=== PATIENT | female | born 1965 | race Hispanic/Latino ===

== ENCOUNTER 2017-12-22 10:42 | Outpatient (CLI) | payer OTHER ==
--- NOTE | 2017-12-22 13:35 | Mammography Report ---
Screening tomomammogram and 2D mammography: The 2-D mammography images demonstrate a heterogeneous and symmetrically distributed pattern with no significant findings. The pattern is unchanged when compared to her prior exam in November 2012. Tomomammogram images of the right breast demonstrates a 6.5 mm elongated and circumscribed nodule inferiorly having no suspicious characteristics. No additional information obtained on the left side. CAD used. Impression: No significant findings or change compared to November 2012. Recommendation: Annual mammogram followup. BI-RADS CATEGORY: 2 = Benign ACR BI-RADS MAMMOGRAPHIC CODES: 0 = Needs additional imaging evaluation; 1 = Negative; 2 = Benign; 3 = Probably benign; 4 = Suspicious; 5 = Malignant; 6 = Known biopsy-proven malignancy COMMENT: 1. Dense breast tissue, i.e., adenosis, fibrocystic changes, etc., may obscure an underlying neoplasm. 2. Approximately 10% of cancers are not detected with mammography. 3. A negative mammography report should not delay biopsy if a clinically suspicious mass is present.
== END 2017-12-22 10:43 | disposition home or self-care (01) ==
LOC: SPVWC 10:42
PROVIDERS: ATTEND Obstetrics & Gynecology
DX: Z12.31 Encounter for screening mammogram for malignant neoplasm of breast (principal)
CPT/HCPCS: 77063; 77067